=== PATIENT | female | born 1960 | race Caucasian/White ===

== ENCOUNTER → 2021-04-17 | Day surgery (SDC) | payer BC ==
[~2021-04-17] MED LIST: AMLODIPINE BESYL5 MG PO; DILTIAZEM ER240 MG PO; FLONASE ALLERG9.9 ML INH; HYOSCYAMINE SULFATE 0.5 MG/ML INJ ONE; JINTELI 1 MG-51 EACH PO; LIDOCAINE HCL 2% LOCAL INJ 5 ML SDV VIAL INJ ONE; MIDAZOLAM HCL 2 MG/2 ML VIAL ONE; PROPOFOL IV EMULSION 10 MG/ML 20 ML VIAL ONE; VIT C PO; VIT D PO
[2021-04-17 11:30] VITALS: BP 149/96
== END | disposition home or self-care (01) ==
LOC: OR 06:43
PROVIDERS: ATTEND Internal Medicine Gastroenterology
DX: Z12.11 Encounter for screening for malignant neoplasm of colon (principal); K57.30 Diverticulosis of large intestine without perforation or abscess without bleeding; K64.8 Other hemorrhoids; I10 Essential (primary) hypertension; Z88.2 Allergy status to sulfonamides; Z01.810 Encounter for preprocedural cardiovascular examination
CPT/HCPCS: 45378; 93005; J1980; J2001; J2250; J2704